=== PATIENT | female | born 1985 | race African-American/Black ===

== ENCOUNTER 2017-06-04 12:04 | Emergency (ER) | payer OTHER, SELFPAY | END 2017-06-04 13:06 | disposition home or self-care (01) | LOC: ERS 12:04 | DX: J02.0 Streptococcal pharyngitis (principal); J45.909 Unspecified asthma, uncomplicated | CPT/HCPCS: 87430; 99283 ==

== ENCOUNTER 2018-10-15 15:28 | Emergency (ER) | payer SELFPAY | END 2018-10-15 17:11 | disposition home or self-care (01) | LOC: ERS 15:28 | DX: A49.1 Streptococcal infection, unspecified site (principal); J45.909 Unspecified asthma, uncomplicated | CPT/HCPCS: 87430; 87804; 99283 ==

== ENCOUNTER 2019-05-20 18:34 | Emergency (ER) | payer SELFPAY ==
[2019-05-20 18:58] LABS: Bilirubin Negative (Negative); Blood, Urine 1+ (Negative); Clarity Clear (Clear); Glucose, Urine (Dipstick) Normal (Negative); Leukocyte 75 Leu/uL (Negative); Nitrite Negative (Negative); Protein, Urine (Dipstick) Negative (Neg-Trace); RBC/HPF 0-3 HPF (0-3); Squamous Epithelial 0-3 HPF (0-3); Urobilinogen Normal mg/dL (Less than 2)
[2019-05-20 19:05] LABS: Bacteria/HPF 4+ HPF (None Seen)
[2019-05-20 20:06] LABS: Pregnancy Test - Urine (BHCG) Negative (Negative); Pregu Control Background? CLEAR/WHITE (CLR/WHITE); Pregu Control Bar Appear? YES (CONTROL BAR); Specific Gravity 1.011 (1.002-1.036)
== END 2019-05-20 20:41 | disposition home or self-care (01) ==
LOC: ERS 18:34
DX: N39.0 Urinary tract infection, site not specified (principal); J45.909 Unspecified asthma, uncomplicated; F32.9 Major depressive disorder, single episode, unspecified
CPT/HCPCS: 81003; 81015; 81025; 87077; 87086; 87186; 99283

== ENCOUNTER 2021-08-03 18:35 | Emergency (ER) | payer BC | END 2021-08-03 21:15 | disposition home or self-care (01) | LOC: ERS 18:35 | DX: M79.672 Pain in left foot (principal); I10 Essential (primary) hypertension; J45.909 Unspecified asthma, uncomplicated; Z79.899 Other long term (current) drug therapy ==

== ENCOUNTER 2021-09-02 17:00 | Outpatient (CLI) | payer BC | END 2021-09-02 17:01 | disposition home or self-care (01) | LOC: SLEEPLAB 17:00 | PROVIDERS: ATTEND Student in an Organized Health Care Education/Training Program | DX: G47.9 Sleep disorder, unspecified (principal); G47.33 Obstructive sleep apnea (adult) (pediatric) | CPT/HCPCS: 95806 ==

== ENCOUNTER 2021-10-04 19:00 | Outpatient (CLI) | payer BC | END 2021-10-04 19:01 | disposition home or self-care (01) | LOC: SLEEPLAB 19:00 | PROVIDERS: ATTEND Student in an Organized Health Care Education/Training Program | DX: G47.9 Sleep disorder, unspecified (principal); G47.33 Obstructive sleep apnea (adult) (pediatric); R06.83 Snoring; G47.10 Hypersomnia, unspecified; E66.9 Obesity, unspecified; Z68.41 Body mass index [BMI] 40.0-44.9, adult | CPT/HCPCS: 95811 ==

== ENCOUNTER 2021-10-27 13:07 | Emergency (ER) | payer BC ==
[2021-10-27] MEDS ORDERED: Ondansetron ODT 4 MG TAB ONE (15:16)
[2021-10-27] MEDS ORDERED: Lidocaine Viscous Sol 2% 15 ml UD Cup ONE (15:47)
[2021-10-27] MEDS ORDERED: Milk Of Magnesia 30 ML UDCUP ONE (15:47)
== END 2021-10-27 17:29 | disposition home or self-care (01) ==
LOC: ERS 13:07
DX: R09.89 Other specified symptoms and signs involving the circulatory and respiratory systems (principal); Z79.899 Other long term (current) drug therapy; J45.909 Unspecified asthma, uncomplicated; I10 Essential (primary) hypertension
CPT/HCPCS: 70360; Q0162

== ENCOUNTER 2024-01-15 06:49 | Inpatient (IN) | payer BC ==
[2024-01-15] MEDS ORDERED: Meclizine HCl 25 MG TAB ONE (10:42)
[2024-01-15 10:55] LABS: #Basophils 0.04 10x3/uL (0.0-0.2); %Basophils 0.5 % (0.0-1.0); %Eosinophils 1.8 % (0.0-10.0); %Monocytes 6.4 % (0.0-10.0); Hemoglobin 12.4 g/dL (12.0-16.0); Mean Corpuscular Hemoglobin 29.5 pg (27.0-31.0); Mean Corpuscular Volume 95.2 fL (78.0-98.0); Mean Platelet Volume 9.3 fL (7.4-10.4); Platelet Count 366 10x3/uL (130-400); RBC Distribution Width 13.6 % (11.5-14.5)
[2024-01-15 11:10] LABS: BHCG - Serum Negative (NEGATIVE)
[2024-01-15 11:11] LABS: Pregs Control Background? CLEAR/WHITE (CLR/WHITE); Pregs Control Bar Appear? YES (CONTROL BAR)
[2024-01-15] MEDS ORDERED: Iopamidol-370 76% 500 ML MDV (1 ML CHARGE) ONE (11:13)
[2024-01-15 11:18] LABS: ALT (SGPT) 47 U/L (8-55); AST (SGOT) 38 U/L (5-34); Albumin 3.4 g/dL (3.5-5.0); Alkaline Phosphatase 78 U/L (40-110); Anion Gap 15 mmol/L (10-20); BUN (Urea Nitrogen) 6 mg/dL (7.0-18.7); Bilirubin, Total 0.3 mg/dL (0.2-1.2); Calc. Creatinine Clearance 0 mL/min (70-130); Calcium 9.3 mg/dL (7.8-10.44); Carbon Dioxide 21 mmol/L (22-29); Chloride 109 mmol/L (98-107); Estimated GFR 102; Globulin 4.4 g/dL (2.4-3.5); Glucose 88 mg/dL (70-105); Potassium 3.7 mmol/L (3.5-5.1); Protein, Total 7.8 g/dL (6.0-8.3); Sodium 141 mmol/L (136-145)
[2024-01-15 11:52] LABS: Troponin I Less than 0.010 ng/mL (< 0.028)
[2024-01-15] MEDS ORDERED: Bisacodyl 5 MG TAB PO PRN (13:17)
[2024-01-15] MEDS ORDERED: Zolpidem Tartrate 5 MG TAB PO PRN (13:17)
[2024-01-15] MEDS ORDERED: Ondansetron ODT 4 MG TAB PO PRN (13:17)
[2024-01-15] MEDS ORDERED: Ondansetron PF 4 MG/2 ML Vial IVP PRN (13:17)
[2024-01-15] MEDS ORDERED: Senokot S 8.6-50 MG TAB PO PRN (13:17)
[2024-01-15] MEDS ORDERED: Acetaminophen 325 MG TAB PO PRN (13:17)
[2024-01-15] MEDS ORDERED: HYDROcodone/Acetaminophen 5/325 mg Tablet PO PRN (13:17)
[2024-01-15] MEDS ORDERED: Calcium Carbonate 500 MG ChewTAB PO PRN (13:17)
[2024-01-15] MEDS ORDERED: Acetaminophen 650 MG Suppository PR PRN (13:17)
[2024-01-15 14:13] VITALS: BMI 42.9
[2024-01-15] MEDS: Sodium Chloride 0.9% 1,000 ML IV SCH (14:17)
[2024-01-15 15:59] LABS: Troponin I Less than 0.010 ng/mL (< 0.028)
[2024-01-15] MEDS ORDERED: Meclizine HCl 25 MG TAB PO PRN (18:00)
[2024-01-15 19:05] LABS: Troponin I Less than 0.010 ng/mL (< 0.028)
[2024-01-16 05:00] LABS: #Basophils 0.03 10x3/uL (0.0-0.2); %Basophils 0.4 % (0.0-1.0); %Eosinophils 2.4 % (0.0-10.0); %Lymphocytes 45.7 % (21.0-51.0); %Monocytes 7.7 % (0.0-10.0); %Neutrophils 43.5 % (42.0-75.0); Hematocrit 35.2 % (36.0-47.0); Hemoglobin 11.1 g/dL (12.0-16.0); Mean Corpuscular HGB CONC 31.5 g/dL (32.0-36.0); Mean Corpuscular Volume 95.1 fL (78.0-98.0); Mean Platelet Volume 9.5 fL (7.4-10.4); Platelet Count 336 10x3/uL (130-400); RBC Distribution Width 13.7 % (11.5-14.5)
[2024-01-16 05:11] LABS: Bacteria/HPF None Seen HPF (None Seen); Bilirubin Negative (Negative); Blood, Urine Negative (Negative); Clarity Clear (Clear); Glucose, Urine (Dipstick) Normal (Negative); Ketone, Urine Negative (Negative); Leukocyte Negative Leu/uL (Negative); Nitrite Negative (Negative); Protein, Urine (Dipstick) Negative (Neg-Trace); Specific Gravity, Urine 1.015 (1.002-1.036); Squamous Epithelial 0-3 HPF (0-3); Urobilinogen Normal mg/dL (Less than 2); pH, Urine 6.5 (5.0-9.0)
[2024-01-16 05:36] LABS: ALT (SGPT) 39 U/L (8-55); AST (SGOT) 34 U/L (5-34); Albumin 2.8 g/dL (3.5-5.0); Alkaline Phosphatase 70 U/L (40-110); Anion Gap 11 mmol/L (10-20); BUN (Urea Nitrogen) 6 mg/dL (7.0-18.7); Bilirubin, Total 0.3 mg/dL (0.2-1.2); Calc. Creatinine Clearance 186 mL/min (70-130); Calcium 8.7 mg/dL (7.8-10.44); Carbon Dioxide 21 mmol/L (22-29); Cardiac Risk 3.1 (Less than 4.5); Chloride 111 mmol/L (98-107); Cholesterol 140 mg/dl (< 200 Desired); Estimated GFR 106; Globulin 3.8 g/dL (2.4-3.5); Glucose 89 mg/dL (70-105); HDL Cholesterol 45 mg/dL (>60 Neg Risk); LDL Cholesterol, Calculated 78 mg/dL; Potassium 3.5 mmol/L (3.5-5.1); Protein, Total 6.6 g/dL (6.0-8.3); Sodium 139 mmol/L (136-145); Triglycerides 83 mg/dL (Less than 150)
[2024-01-16] MEDS: Amlodipine 10 MG TAB PO SCH (08:56)
[2024-01-16] MEDS: Enoxaparin 40 MG (0.4 mL) SYRINGE SC SCH (08:56)
[2024-01-16 16:11] VITALS: BP 117/65; TEMP 98.1
[2024-01-16] MEDS ORDERED: Citalopram 20 MG TAB PO SCH (21:00)
[2024-01-16] MEDS ORDERED: Loratadine 10 MG TAB PO SCH (21:00)
== END 2024-01-16 17:00 | disposition home or self-care (01) | DRG 149 ==
LOC: ERS 06:49 → ERHOLD 12:57 → 2SW 15:43
PROVIDERS: ADMIT Internal Medicine; ATTEND Emergency Medicine
DX: H83.09 Labyrinthitis, unspecified ear (principal); J32.9 Chronic sinusitis, unspecified; F32.A Depression, unspecified; I10 Essential (primary) hypertension; G47.33 Obstructive sleep apnea (adult) (pediatric); R07.9 Chest pain, unspecified; Z85.43 Personal history of malignant neoplasm of ovary; Z87.891 Personal history of nicotine dependence; Z79.899 Other long term (current) drug therapy; I67.1 Cerebral aneurysm, nonruptured
CPT/HCPCS: 36415; 70496; 70498; 70551; 71045; 80053; 80061; 81001; 83735; 83880; 84443; 84484; 84703; 85025; 93005; 93306; 96360; J1650; J7050; Q9967

== ENCOUNTER 2024-09-04 01:05 | Emergency (ER) | payer BC, MEDICAID ==
[2024-09-04] MEDS ORDERED: Cyclobenzaprine 10 MG TAB ONE (01:17)
[2024-09-04] MEDS ORDERED: Ibuprofen 800 MG TAB ONE (01:18)
[2024-09-04] MEDS ORDERED: predniSONE 20 MG TAB ONE (01:18)
== END 2024-09-04 01:56 | disposition home or self-care (01) ==
LOC: ERS 01:05
DX: M62.830 Muscle spasm of back (principal); I10 Essential (primary) hypertension
CPT/HCPCS: 99283; J7512